=== PATIENT | female | born 1950 | race Two or more races ===

== ENCOUNTER 2023-02-16 14:52 | Emergency (ER) | payer OTHER ==
[~2023-02-16] VITALS: Ht 167.6 cm; Wt 90.7 kg
[2023-02-16] MEDS ORDERED: COZAAR25 MG PO (16:59)
== END 2023-02-16 19:24 | disposition home or self-care (01) ==
LOC: ER 14:52
DX: S81.812A Laceration without foreign body, left lower leg, initial encounter (principal); W45.8XXA Other foreign body or object entering through skin, initial encounter; Y93.9 Activity, unspecified; Y92.89 Other specified places as the place of occurrence of the external cause; Y99.9 Unspecified external cause status; I10 Essential (primary) hypertension; Z88.0 Allergy status to penicillin; Z88.2 Allergy status to sulfonamides
CPT/HCPCS: 13121; 13122 ×3; 90471; 90714; 96365; 99285; J0744; J1670; J1885